=== PATIENT | female | born 1980 | race Two or more races ===

== ENCOUNTER 2017-03-27 11:13 | Emergency (ER) | payer MEDICAID ==
[~2017-03-27] VITALS: Ht 162.6 cm; Wt 111.1 kg
[2017-03-27 11:20] VITALS: BP 117/78
== END 2017-03-27 13:01 | disposition home or self-care (01) ==
LOC: ER 11:15
DX: I88.9 Nonspecific lymphadenitis, unspecified (principal); E66.01 Morbid (severe) obesity due to excess calories; R13.19 Other dysphagia; F41.9 Anxiety disorder, unspecified; Z68.41 Body mass index [BMI] 40.0-44.9, adult
CPT/HCPCS: 99283; A4606; Z7610

== ENCOUNTER 2021-07-07 20:02 | Emergency (ER) | payer MEDICAID, OTHER ==
[~2021-07-07] VITALS: Ht 162.6 cm; Wt 96.2 kg
[2021-07-07] MEDS ORDERED: TDAP [DIPH/PERTUSSIS/TET] 0.5 ML VIAL IM ONE ×2 (21:18→21:30)
[2021-07-07 21:52] VITALS: BP 140/78
--- NOTE | 2021-07-07 21:52 | NUR ---
Patient discharged to home in stable condition. Written and verbal after care instructions given. Patient verbalizes understanding of instruction.
== END 2021-07-07 21:52 | disposition home or self-care (01) ==
LOC: ER 20:07
DX: S61.211A Laceration without foreign body of left index finger without damage to nail, initial encounter (principal); F41.9 Anxiety disorder, unspecified; W26.9XXA Contact with unspecified sharp object(s), initial encounter; Y93.89 Activity, other specified; Y92.89 Other specified places as the place of occurrence of the external cause; Y99.8 Other external cause status
CPT/HCPCS: 73130-TC; 90715

== ENCOUNTER 2022-01-31 03:54 | Emergency (ER) | payer OTHER ==
[~2022-01-31] VITALS: Ht 162.6 cm; Wt 93.4 kg
--- NOTE | 2022-01-31 04:12 | NUR ---
BIBFAMILY. FROM HOME RUQ ABD PAIN X 1 HR. HX OF GALL BLADDER STONE. PT A/OX4. TOLERATING R/A WELL WITH NO RESP DISTRESS.
[2022-01-31] MEDS ORDERED: ONDANSETRON HCL/PF 4 MG/2 ML VIAL ONE (04:25)
[2022-01-31] MEDS ORDERED: MORPHINE SULFATE INJ 4 MG/ML DISP.SYRIN ONE (04:25)
[2022-01-31] MEDS: IV NS 0.9% 500 ML BAG IV ONE (04:44)
[2022-01-31] MEDS: MORPHINE SULFATE INJ 2 MG/ML DISP.SYRIN IV ONE (04:45)
--- NOTE | 2022-01-31 04:45 | NUR ---
RAC #18G S/L BLOOD COLLECTED AND SENT TO LAB
--- NOTE | 2022-01-31 04:45 | NUR ---
QUALITY CONTROL SPECIALIST AT PT'S BEDSIDE
[2022-01-31] MEDS: ONDANSETRON HCL/PF 4 MG/2 ML VIAL IVP ONE (04:46)
--- NOTE | 2022-01-31 04:46 | NUR ---
URINE COLLECTED AND SENT TO LAB
--- NOTE | 2022-01-31 04:57 | NUR ---
US TECH AT PT'S BEDSIDE
[2022-01-31 05:17] LABS: BASOPHILS # (AUTO) 0.1 K/uL (0.0-0.2); EOSINOPHILS % (AUTO) 1.3 % (0.0-6.0); HEMATOCRIT 41 % (33-45); HEMOGLOBIN 13.9 g/dL (11.5-14.8); LYMPHOCYTES # (AUTO) 3.9 K/uL (0.8-4.8); LYMPHOCYTES % (AUTO) 33.6 % (20.0-44.0); MEAN CORPUSCULAR HGB CONC 34 g/dl (31.0-36.0); MEAN CORPUSCULAR VOLUME 89 fL (82-100); MONOCYTES # (AUTO) 0.6 K/uL (0.1-1.30); MONOCYTES % (AUTO) 5.5 % (2.0-12.0); NEUTROPHILS # (AUTO) 6.7 K/uL (1.8-8.9); NEUTROPHILS % (AUTO) 58.6 % (43.0-81.0); PLATELET COUNT (AUTO) 333 K/uL (150-450); RED BLOOD CELL COUNT(AUTO) 4.54 MIL/uL (4.0-5.2); WHITE BLOOD COUNT (AUTO) 11.5 K/uL (4.3-11.0)
[2022-01-31 05:23] LABS: BILIRUBIN,URINE NEGATIVE (NEGATIVE); COLOR,URINE YELLOW (YELLOW); LEUKOCYTE ESTERASE ,URINE NEGATIVE (NEGATIVE); NITRITE, URINE NEGATIVE (NEGATIVE); PROTEIN,URINE NEGATIVE (NEGATIVE); UGLUCOSE NEGATIVE (NEGATIVE); UROBILINOGEN,URINE 0.2 EU/dL (0.2)
[2022-01-31 05:30] LABS: CARBON DIOXIDE 29 mmol/L (21-32); CHLORIDE 104 mmol/L (98-107); CREATININE 0.6 mg/dL (0.6-1.3); GLUCOSE 163 mg/dL (74-106); POTASSIUM 3.2 mmol/L (3.5-5.1); SODIUM SERUM 138 mmol/L (136-145); UREA NITROGEN, BLOOD 12 mg/dL (7-18)
[2022-01-31 05:31] LABS: BACTERIA,URINE Rare /HPF (None Seen); RBC,URINE 0-2 /HPF (0-2); SQUAMOUS EPITHELIAL CELL,UR Few /HPF (None Seen); WBC,URINE 0-2 /HPF (0-3)
[2022-01-31 05:38] LABS: ALANINE AMINOTRANSFERASE 16 U/L (12-78); ALBUMIN 3.4 g/dL (3.4-5.0); ALKALINE PHOSPHATASE 93 U/L (46-116); ASPARTATE AMINOTRANSFERASE 11 U/L (15-37); BILIRUBIN,DIRECT 0.1 mg/dL (0.0-0.2); BILIRUBIN,TOTAL 0.3 mg/dL (0.2-1.0); LIPASE 188 U/L (73-393); TOTAL PROTEIN, SERUM 7.3 g/dL (6.4-8.2)
[2022-01-31] MEDS ORDERED: ONDA4TAB5 PO (07:10)
--- NOTE | 2022-01-31 07:22 | NUR ---
Patient discharged to home in stable condition. Written and verbal after care instructions given. Patient verbalizes understanding of instruction.IV removed. Catheter intact and site benign. Pressure and 4x4 applied to site. No bleeding noted.
[2022-01-31 07:25] VITALS: BP 142/80
== END 2022-01-31 07:26 | disposition home or self-care (01) ==
LOC: ER 03:56
DX: K80.50 Calculus of bile duct without cholangitis or cholecystitis without obstruction (principal); R10.13 Epigastric pain; R10.11 Right upper quadrant pain; R11.2 Nausea with vomiting, unspecified; F41.9 Anxiety disorder, unspecified
CPT/HCPCS: 99285; 74176; 96374; 76705; 71045; 96375; 93005; 85025; 80048; 83690; 80076; 84703; 81001; 36415; 84484; 85730; J2270; J2405; J7040

== ENCOUNTER 2022-04-24 03:12 | Emergency (ER) | payer OTHER ==
[~2022-04-24] VITALS: Ht 162.6 cm; Wt 93.4 kg
[~2022-04-24 03:12] MED LIST: ONDA4TAB5 PO
--- NOTE | 2022-04-24 03:50 | NUR ---
BIBS C/O AND PAIN RADIATING TO BACK XMIDNIGHT HX GALLSTONES. PT A/OX4. TOLERATING R/A WELL WITH NO RESP DISTRESS. CONNECTED PT TO POX AND MONITOR. SAFETY MEASURES IN [place].
[2022-04-24] MEDS ORDERED: MORPHINE SULFATE INJ 4 MG/ML DISP.SYRIN ONE (03:55)
[2022-04-24] MEDS ORDERED: ONDANSETRON HCL/PF 4 MG/2 ML VIAL ONE (03:55)
--- NOTE | 2022-04-24 03:59 | NUR ---
EMT AT PT'S BEDSIDE FOR EKG
[2022-04-24] MEDS ORDERED: IV NS 0.9% 1,000 ML BAG IV ONE (04:00)
[2022-04-24] MEDS ORDERED: ONDANSETRON HCL/PF 4 MG/2 ML VIAL IVP ONE (04:00)
[2022-04-24] MEDS ORDERED: MORPHINE SULFATE INJ 2 MG/ML DISP.SYRIN IV ONE (04:00)
--- NOTE | 2022-04-24 04:08 | NUR ---
IV LINE ESTABLISHED, [id number]
[2022-04-24 04:21] LABS: BASOPHILS % (AUTO) 0.4 % (0.0-2.0); EOSINOPHILS % (AUTO) 1.7 % (0.0-6.0); HEMATOCRIT 40 % (33-45); HEMOGLOBIN 13.6 g/dL (11.5-14.8); LYMPHOCYTES # (AUTO) 3.9 K/uL (0.8-4.8); LYMPHOCYTES % (AUTO) 36.1 % (20.0-44.0); MEAN CORPUSCULAR HGB CONC 34 g/dl (31.0-36.0); MEAN CORPUSCULAR VOLUME 90 fL (82-100); MONOCYTES # (AUTO) 0.7 K/uL (0.1-1.30); MONOCYTES % (AUTO) 6.8 % (2.0-12.0); PLATELET COUNT (AUTO) 304 K/uL (150-450); RED BLOOD CELL COUNT(AUTO) 4.45 MIL/uL (4.0-5.2); WHITE BLOOD COUNT (AUTO) 10.9 K/uL (4.3-11.0)
[2022-04-24 04:36] LABS: ALANINE AMINOTRANSFERASE 23 U/L (12-78); ALBUMIN 3.3 g/dL (3.4-5.0); ALKALINE PHOSPHATASE 101 U/L (46-116); ASPARTATE AMINOTRANSFERASE 13 U/L (15-37); BILIRUBIN,DIRECT 0.1 mg/dL (0.0-0.2); BILIRUBIN,TOTAL 0.2 mg/dL (0.2-1.0); CALCIUM, SERUM 8.8 mg/dL (8.5-10.1); CARBON DIOXIDE 27 mmol/L (21-32); CHLORIDE 104 mmol/L (98-107); CREATININE 0.8 mg/dL (0.6-1.3); GLUCOSE 160 mg/dL (74-106); LIPASE 236 U/L (73-393); POTASSIUM 3.6 mmol/L (3.5-5.1); SODIUM SERUM 138 mmol/L (136-145); TOTAL PROTEIN, SERUM 6.6 g/dL (6.4-8.2); UREA NITROGEN, BLOOD 11 mg/dL (7-18)
[2022-04-24 05:54] LABS: BILIRUBIN,URINE NEGATIVE (NEGATIVE); COLOR,URINE YELLOW (YELLOW); LEUKOCYTE ESTERASE ,URINE NEGATIVE (NEGATIVE); NITRITE, URINE NEGATIVE (NEGATIVE); PH,URINE 5.5 (5.0-8.0); PROTEIN,URINE NEGATIVE (NEGATIVE); UGLUCOSE NEGATIVE (NEGATIVE); UROBILINOGEN,URINE 0.2 EU/dL (0.2)
[2022-04-24 06:42] LABS: BACTERIA,URINE Few /HPF (None Seen); CALCIUM OXALATE CRYSTALS,UR Few /HPF (None Seen); RBC,URINE 0-2 /HPF (0-2); SQUAMOUS EPITHELIAL CELL,UR Few /HPF (None Seen); WBC,URINE 0-2 /HPF (0-3)
--- NOTE | 2022-04-24 07:34 | NUR ---
Kristopher best in [facility] - 04/24/22 at 0742 by [place] HOLD MORPHINE FOR NM HEPATO BILIARY HIDA SCAN PER RADIOLOGY
--- NOTE | 2022-04-24 07:42 | NUR ---
HOLD MORPHINE FOR NM HEPATO BILIARY HIDA SCAN PER RADIOLOGY
--- NOTE | 2022-04-24 07:51 | NUR ---
PT IN BED A/O X4, ENDORSES PAIN HAS SETTLED SINCE ARRIVING. SET TO HAVE HEPATO BILIARY HIDA SCAN
--- NOTE | 2022-04-24 08:16 | NUR ---
CALLED NUCLEAR MEDICINE, NO RESPONSE.
--- NOTE | 2022-04-24 09:30 | NUR ---
PT AMBULATED BACK TO BED FROM RESTROOM WITH STEADY GAIT. RECONNECTED TO MONITOR. BREATHING EVEN AND UNLABORED. VITAL SIGNS STABLE. SAFETY PRECAUTIONS IN PLACE.
--- NOTE | 2022-04-24 09:32 | NUR ---
[facility] RADIOLOGY ACCOMPANIED BY [facility]IC[facility].
--- NOTE | 2022-04-24 09:32 | NUR ---
PT TAKEN TO [place] FOR HIDA SCAN VIA [facility]
--- NOTE | 2022-04-24 11:26 | NUR ---
@ 1300 hida delay imaging re scan
--- NOTE | 2022-04-24 11:27 | NUR ---
PT IN BED 9 AWAKE AND ALERT. NOT COMPLAINING OF PAIN.
--- NOTE | 2022-04-24 12:50 | NUR ---
PATIENT AT [facility] SCAN.
[2022-04-24 14:42] VITALS: BP 122/82
== END 2022-04-24 14:40 | disposition home or self-care (01) ==
LOC: ER 03:15
DX: K80.70 Calculus of gallbladder and bile duct without cholecystitis without obstruction (principal); R10.84 Generalized abdominal pain; F41.9 Anxiety disorder, unspecified; Z98.890 Other specified postprocedural states; Z79.899 Other long term (current) drug therapy
CPT/HCPCS: 99285; 78226; 96374; 76705; 96361; 96375; 93005; 85025; 80048; 83690; 80076; 81001; 36415; 84484; 85730; J2270; J2405; J7030; A9537

== ENCOUNTER 2023-09-09 07:13 | Emergency (ER) | payer OTHER ==
[~2023-09-09] VITALS: Ht 162.6 cm; Wt 88.5 kg
[2023-09-09] MEDS: IV NS 0.9% 1,000 ML BAG IV ONE (07:30)
[2023-09-09 07:55] VITALS: TEMP 98.3
[2023-09-09 07:59] LABS: BASOPHILS % (AUTO) 0.4 % (0.0-2.0); EOSINOPHILS # (AUTO) 0.1 K/uL (0.0-0.7); EOSINOPHILS % (AUTO) 1.3 % (0.0-6.0); HEMATOCRIT 42 % (33-45); HEMOGLOBIN 14.4 g/dL (11.5-14.8); LYMPHOCYTES # (AUTO) 2.5 K/uL (0.8-4.8); LYMPHOCYTES % (AUTO) 24.8 % (20.0-44.0); MEAN CORPUSCULAR HEMOGLOBIN 31 PG (26.0-33.0); MEAN CORPUSCULAR HGB CONC 34 g/dl (31.0-36.0); MEAN CORPUSCULAR VOLUME 89 fL (82-100); MONOCYTES # (AUTO) 0.5 K/uL (0.1-1.30); MONOCYTES % (AUTO) 5.3 % (2.0-12.0); NEUTROPHILS # (AUTO) 6.8 K/uL (1.8-8.9); NEUTROPHILS % (AUTO) 68.2 % (43.0-81.0); PLATELET COUNT (AUTO) 323 K/uL (150-450); RED BLOOD CELL COUNT(AUTO) 4.71 MIL/uL (4.0-5.2); RED CELL DISTRIBUTION WIDTH 13.2 % (11.5-15.0); WHITE BLOOD COUNT (AUTO) 9.9 K/uL (4.3-11.0)
[2023-09-09] MEDS ORDERED: ONDANSETRON HCL/PF 4 MG/2 ML VIAL ONE (07:59)
[2023-09-09] MEDS ORDERED: FAMOTIDINE/PF INJ 20 MG/2 ML VIAL IV ONE (07:59)
[2023-09-09] MEDS ORDERED: LIDOCAINE VISCOUS 2% UD 15 ML UDC ONE (07:59)
[2023-09-09] MEDS ORDERED: MAG HYDROX/AL HYDROX/SIMETH 30 ML UDC ONE (07:59)
[2023-09-09] MEDS: LIDOCAINE VISCOUS 2% UD 15 ML UDC MM ONE (08:00)
[2023-09-09] MEDS: ONDANSETRON HCL/PF 4 MG/2 ML VIAL IV ONE (08:00)
[2023-09-09] MEDS: FAMOTIDINE/PF INJ 20 MG/2 ML VIAL IV ONE (08:00)
[2023-09-09] MEDS: MAG HYDROX/AL HYDROX/SIMETH 30 ML UDC PO ONE (08:00)
[2023-09-09 08:09] LABS: CALCIUM, SERUM 9.1 mg/dL (8.5-10.1); CREATININE 0.7 mg/dL (0.6-1.3); POTASSIUM 3.5 mmol/L (3.5-5.1)
[2023-09-09 08:21] LABS: ALBUMIN 3.5 g/dL (3.4-5.0); BILIRUBIN,DIRECT 0.1 mg/dL (0.0-0.2); BILIRUBIN,TOTAL 0.4 mg/dL (0.2-1.0); TOTAL PROTEIN, SERUM 7.4 g/dL (6.4-8.2)
[2023-09-09] MEDS ORDERED: FAMO-131 PO (09:19)
[2023-09-09] MEDS ORDERED: ONDA4TAB5 PO (09:19)
[2023-09-09 09:47] LABS: APPEARANCE,URINE Clear (CLEAR); BILIRUBIN,URINE Negative (NEGATIVE); BLOOD, URINE Small Ery/uL (NEGATIVE); COLOR,URINE YELLOW (YELLOW); KETONES,URINE Trace mg/dL (NEGATIVE); LEUKOCYTE ESTERASE ,URINE Negative (NEGATIVE); NITRITE, URINE Negative (NEGATIVE); PH,URINE 6.5 (5.0-8.0); PROTEIN,URINE Negative (NEGATIVE); UGLUCOSE Negative (NEGATIVE); UROBILINOGEN,URINE 0.2 EU/dL (0.2)
[2023-09-09 10:08] VITALS: BP 136/84; O2SAT 100
[2023-09-09 10:08] LABS: PREGNANCY TEST URINE QUAL NEGATIVE (NEGATIVE)
[2023-09-09 10:35] LABS: ADD URINE CULTURE NO; BACTERIA,URINE Rare /HPF (None Seen); SQUAMOUS EPITHELIAL CELL,UR Few /HPF (None Seen); WBC,URINE 0-2 /HPF (0-3)
== END 2023-09-09 10:08 | disposition home or self-care (01) ==
LOC: ER 07:22
DX: K57.90 Diverticulosis of intestine, part unspecified, without perforation or abscess without bleeding (principal); D25.9 Leiomyoma of uterus, unspecified; R10.13 Epigastric pain; R11.2 Nausea with vomiting, unspecified; R19.7 Diarrhea, unspecified; F41.9 Anxiety disorder, unspecified; Z90.49 Acquired absence of other specified parts of digestive tract
CPT/HCPCS: 99285; 74176; 96374; 76705; 96361; 96375; 85025; 80048; 83690; 80076; 84703; 81001; 36415; J3490; J2405; J7030